=== PATIENT | female | born 1975 | race American Indian/Alaskan Native ===

== ENCOUNTER 2019-06-28 09:04 | Inpatient (IN) | payer MEDICAID ==
[2019-06-28] MEDS ORDERED: LACTATED RINGERS 1,000 ML ONE (09:28)
[2019-06-28] MEDS ORDERED: FAMOTIDINE 20 MG/2 ML INJ IV ONE (15:27)
[2019-06-28] MEDS ORDERED: BICITRA ORAL LIQD 30ML PO ONE (15:27)
[2019-06-28] MEDS ORDERED: GENTAMICIN 80 MG in SODIUM CHLORIDE 0.9% 100 ML IV ONE (15:27)
[2019-06-28] MEDS ORDERED: METOCLOPRAMIDE 10 MG/2 ML INJ IV ONE (15:27)
[2019-06-28] MEDS ORDERED: GENTAMICIN/NS 80 MG/100 ML 100 ML IV ONE (15:40)
[2019-06-28 15:42] LABS: Basophils # (Auto) 0.1 K/mm3 (0.0-0.1); Basophils % (Auto) 1.3 % (0.0-1.8); Eosinophils # (Auto) 0.1 K/mm3 (0.0-0.4); Eosinophils % (Auto) 1.9 % (0.0-4.3); Hemoglobin 11.1 gm/dl (10.1-14.3); Lymphocytes # (Auto) 1.6 K/mm3 (1.2-5.4); Lymphocytes % (Auto) 23.6 % (13.4-35.0); Mean Corpuscular HGB Conc 34 % (30-34); Mean Corpuscular Volume 89 fl (79-97); Monocytes # (Auto) 0.5 K/mm3 (0.0-0.8); Monocytes % (Auto) 7.4 % (0.0-7.3); Platelet Count 280 K/mm3 (140-440); Red Blood Count 3.72 M/mm3 (3.65-5.03); Red Cell Distribution Width 14.4 % (13.2-15.2)
[2019-06-28] MEDS ORDERED: GENTAMICIN/NS 80 MG/100 ML 100 ML IV NR (16:00)
[2019-06-28] MEDS ORDERED: LACTATED RINGERS 1,000 ML IV SCH (16:00)
[2019-06-28] MEDS ORDERED: OXYTOCIN 20 UNIT/1000ML DRIP 20 UNITS/1,000 ML BAG IV SCH ×2 (16:00→19:00)
[2019-06-28] MEDS ORDERED: WATER FOR IRRIG STERILE 1,500 ML BOTTLE IR ONE (16:24)
[2019-06-28] MEDS ORDERED: SODIUM CHLORIDE 0.9% IRR 1,500 ML BOTTLE IR ONE (16:24)
[2019-06-28] MEDS ORDERED: PHENYLEPHRINE 10 MG/1 ML INJ SDV ONE (16:50)
[2019-06-28] MEDS ORDERED: DEXMEDETOMIDINE 200 MCG/2 ML VIAL IV ONE (16:50)
[2019-06-28] MEDS ORDERED: MIDAZOLAM 2 MG/2 ML INJ ONE ×2 (17:46)
[2019-06-28] MEDS ORDERED: LANOLIN/ZINC/DIMETHICONE (LANSINOH) 7 GM TP PRN (18:12)
[2019-06-28] MEDS ORDERED: NALOXONE 0.4 MG/1 ML INJ IV PRN (18:12)
[2019-06-28] MEDS ORDERED: WITCH HAZEL/ GLYCERIN PAD TP PRN (18:12)
[2019-06-28] MEDS ORDERED: SENNOSIDES 8.6 MG TAB PO PRN (18:16)
[2019-06-28] MEDS ORDERED: HYDROCORTISONE 25 MG RECTAL SUPP PR PRN (18:16)
[2019-06-28] MEDS ORDERED: ONDANSETRON 4 MG/2 ML INJ IV PRN ×2 (18:16→18:26)
[2019-06-28] MEDS ORDERED: MAGNESIUM HYDROXIDE (MOM) ORAL LIQD UDC PO PRN (18:16)
[2019-06-28] MEDS ORDERED: SIMETHICONE 80 MG CHEW TAB PO PRN (18:16)
--- NOTE | 2019-06-28 18:25 | Anesthesia Consultation ---
Anesthesia Consult and Med Hx Date of service: 06/28/19 - Airway Anesthetic Teeth Evaluation: Good, Poor ROM Head & Neck: Adequate Mental/Hyoid Distance: Adequate Mallampati Class: Class II Intubation Access Assessment: Probably Good - Pulmonary Exam CTA: Yes - Cardiac Exam Cardiac Exam: RRR - Pre-Operative Health Status ASA Pre-Surgery Classification: ASA2 Proposed Anesthetic Plan: Epidural - Pre-Anesthesia Comment Pre-Anesthesia Comments: PSH: DENIES - Pulmonary Hx Smoking: Yes Hx Asthma: No Hx Respiratory Symptoms: No SOB: No COPD: No Home Oxygen Therapy: No Hx Pneumonia: No Hx Sleep Apnea: No - Cardiovascular System Hx Hypertension: No Hx Coronary Artery Disease: No Hx Heart Attack/AMI: No Hx Angina: No Hx Percutaneous Transluminal Coronary Angioplasty (PTCA): No Hx Cardia Arrhythmia: No Hx Pacemaker: No Hx Internal Defibrillator: No Hx Valvular Heart Disease: No Hx Heart Murmur: No Hx Peripheral Vascular Disease: No - Central Nervous System Hx Neuromuscular Disorder: No Hx Seizures: No CVA: No Hx Back Pain: Yes Hx Psychiatric Problems: No - Gastrointestinal Hx Ulcer: No Hx Gastroesophageal Reflux Disease: Yes - Endocrine Hx Renal Disease: No Hx End Stage Renal Disease: No Hx Cirrhosis: No Hx Liver Disease: No Hx Insulin Dependent Diabetes: No Hx Non-Insulin Dependent Diabetes: No Hx Thyroid Disease: No Hx Hypothyroidism: No Hx Hyperthyroidism: No - Hematic Hx Anemia: Yes Hx Sickle Cell Disease: No - Other Systems Hx Alcohol Use: Yes (socially) Hx Substance Use: No Hx Cancer: No Hx Obesity: No
[2019-06-28] MEDS ORDERED: HYDROmorphone 1 MG/1 ML INJ IV PRN ×2 (18:26)
--- NOTE | 2019-06-28 18:26 | Post Anesthesia Evaluation ---
- Post Anesthesia Evaluation Patient Participated: Yes Airway Patent: Yes Stable Respiratory Function: Yes Nausea/Vomiting: No Temp > 96.8F: Yes Pain Manageable: Yes Adequeate Hydration: Yes Anesthesia Complications: No Block Receding Appropriately: Yes Patient on Ventilator: No
--- NOTE | 2019-06-28 18:26 | Anesthesia Day of Surgery ---
Anesthesia Day of Surgery - Day of Surgery Patient Examined: Yes Patient H&P Reviewed: Yes Patient is NPO: Yes Beta Blockers: No Cardiac Clearance: No Pulmonary Clearance: No Manan's Test: N/A
--- NOTE | 2019-06-28 18:32 | Procedure Note ---
OB Delivery Note - Section Preop diagnosis: repeat , desires sterilization Postop diagnosis: same section procedure: repeat low transverse, bilateral tubal ligation Disposition: PACU Complications: none Narrative: This patient is at 39 weeks and 4 days today with a history of 3 prior C- sections who is here today for her repeat low transverse as well as fo r tubal ligation for sterilization. Surgeon Dr. Vivar Assist Dr. Prateek Doherty Anesthesia spinal Estimated blood loss 800 mL Findings normal tubes and ovaries were noted except for some filmy adhesions around the tubes particularly on the right side. The uterus was also grossly within normal limits except for some mild filmy adhesions on the anterior side. Patient did have some significant subcutaneous tissue and madhuri-fascial scarring. Viable Male, APGARs 8/9 Procedure patient was taken to the operating room and prepped and draped in the usual fashion. A Pfannenstiel skin incision was made over her prior incision. Dissection was carefully carried down to the underlying fascia which was incised and the incision was extended bilaterally. Rectus fascia dissected off the rectus muscle both superiorly and inferiorly. Peritoneum was identified and entered. Peritoneal incision then extended superiorly and inferiorly with good visualization of the bladder. The above-noted adhesions were lysed then the uterine incision was made. Uterine incision then extended bilaterally. Clear fluid was noted. Baby was vertex. Baby delivered in the usual fashion except needed to Kiwi vacuum to assist with the delivery due to the tightness of her scar tissue. Kiwi was pumped up to green section on each application. 2 pop offs were noted but the baby successfully intubated delivered with her application. Kiwi was removed. Remainder the baby was delivered. Delayed cord clamping and cutting was done. Baby handed off to awaiting team. Placenta was then delivered spontaneously and the uterus tubes and ovaries were exteriorized. The uterus was cleared of all clots and debris. The uterine incision closed with 0 Vicryl running locked fashion followed by a second imbr icating layer of 0 Vicryl. A couple of other [id number] stitches were required and then good hemostasis noted. Attention was turned to the fallopian tubes which were suture ligated using 0 chromic 2 on each side. Good hemostasis noted afterwards. The above-noted adhesions were lysed prior to performing the tubal ligation. The segments of each tube were sent to pathology. Uterus tubes and ovaries then returned to the abdominal cavity. Gutters were cleared of all clots and debris and pelvis was well irrigated. Good hemostasis was noted including at the site of the tubal ligation. Interceed placed over the uterine incision and over the lower uterine segment in the midline. Attention was done to the rectus fascia was reapproximated using 0 Vicryl in a running fashion. The subcutaneous tissue was very thin and therefore was not closed. The skin was closed with 4-0 Vicryl in a subcuticular fashion followed by Dermabond. Patient tolerated procedure well. All instrument and lap counts were correct. Patient taken to the recovery room in stable condition.
[2019-06-28] MEDS ORDERED: D5W/LACTATED RINGERS 1,000 ML IV SCH (19:00)
[2019-06-28] MEDS: KETOROLAC 30 MG/1 ML INJ IV PRN (21:10)
[2019-06-29] MEDS: KETOROLAC 30 MG/1 ML INJ IV PRN ×2 (02:00→09:08)
[2019-06-29 06:58] LABS: Hematocrit 31.6 % (30.3-42.9); Hemoglobin 10.7 gm/dl (10.1-14.3)
--- NOTE | 2019-06-29 07:22 | Progress Note ---
Assessment and Plan - Patient Problems (1) delivery delivered Current Visit: Yes Status: Acute Plan to address problem: stable POD 1. Cont pp care. Subjective - Subjective Date of service: 06/29/19 Principal diagnosis: POD 1 Patient reports: no new complaints (PT is amb, tolerating po, positive flatus. No F/V/N/V/CP/SOB.) Objective - Vital Signs Vital Signs: Vital Signs - 12hr 06/28/19 06/28/19 06/28/19 19:20 19:30 19:35 Temperature 97.0 F L 96.8 F L Pulse Rate 63 Respiratory 17 Rate Respiratory Rate [Lower Abdomen] Blood Pressure 139/92 Blood Pressure [Right] O2 Sat by Pulse 100 Oximetry 06/28/19 06/28/19 06/28/19 19:40 19:58 20:00 Temperature 97.1 F L 97.5 F L 98.6 F Pulse Rate 77 Respiratory 16 Rate Respiratory Rate [Lower Abdomen] Blood Pressure Blood Pressure 143/90 [Right] O2 Sat by Pulse Oximetry 06/28/19 06/29/19 06/29/19 21:10 00:00 02:00 Temperature 98.6 F Pulse Rate 69 Respiratory 18 18 18 Rate Respiratory 18 Rate [Lower Abdomen] Blood Pressure Blood Pressure 121/68 [Right] O2 Sat by Pulse Oximetry 06/29/19 04:40 Temperature 98.6 F Pulse Rate 71 Respiratory 1 L Rate Respiratory Rate [Lower Abdomen] Blood Pressure Blood Pressure 114/78 [Right] O2 Sat by Pulse Oximetry - Exam Abdomen: Present: normal appearance, soft (appropriately tender. Dressing C/D/I) - Labs Labs: Abnormal Labs 06/28/19 Unknown [place] % (Auto) 7.4 H Laboratory Results - last 24 hr 06/28/19 06/28/19 06/29/19 Unknown Unknown 05:53 WBC 6.9 RBC 3.72 Hgb 11.1 10.7 Hct 33.0 31.6 MCV 89 MCH 30 MCHC 34 RDW 14.4 Plt Count 280 Lymph % (Auto) 23.6 [place] % (Auto) 7.4 H Eos % (Auto) 1.9 Baso % (Auto) 1.3 Lymph # 1.6 [place] # 0.5 Eos # 0.1 Baso # 0.1 Seg Neutrophils % 65.8 Seg Neutrophils # 4.5 Blood Type A POSITIVE Antibody Screen Negative
[2019-06-29] MEDS: guaiFENesin 100 MG/5 ML ORAL LIQD PO PRN ×2 (13:48→22:32)
[2019-06-29] MEDS: HYDROcodone/ACETAMINOPHEN 5-325 MG TAB PO PRN ×2 (13:53→22:41)
[2019-06-29] MEDS: IBUPROFEN 800 MG TAB PO PRN (18:08)
[2019-06-30] MEDS: guaiFENesin 100 MG/5 ML ORAL LIQD PO PRN (05:01)
[2019-06-30] MEDS: HYDROcodone/ACETAMINOPHEN 5-325 MG TAB PO PRN ×3 (05:02→20:59)
[2019-06-30] MEDS ORDERED: TETANUS,DIPH,PERTUSS(ACELL) VACCINE 0.5 ML SYRINGE IM ONE (06:00)
[2019-06-30] MEDS: IBUPROFEN 800 MG TAB PO PRN ×2 (08:51→17:21)
--- NOTE | 2019-06-30 11:40 | Progress Note ---
Assessment and Plan A: /postop day 2 S/P repeat LTCS. Cough and congestion with rhonchi on auscultation of lungs. Anemia secondary to and blood loss. P: CBC, flu swab, chest x-ray. Continue iron supplementation and ambulation. Subjective - Subjective Date of service: 06/30/19 Principal diagnosis: POD 2 S/P repeat LTCS Interval history: Post op day 2 S/P repeat LTCS. Patient is voiding without difficulty, passing gas, tolerating a regular diet, and ambulating well. She is using incentive spirometer. She reports small amount of lochia. She reports a cough which she states she has had for about a week. Denies fever, chills, body aches, or malaise. Reports nasal congestion and pale yellow mucous. Reports she feels congeted in her chest starting this AM. Patient denies dizziness, headache, chest pain, shortness of breath, or leg pain. She denies heavy vaginal bleeding. She is bottlefeeding and . Patient reports: appetite normal, voiding normally, pain well controlled, fl atus, ambulating normally, no dizzy ambulation, no nauseated [place]: doing well Objective - Vital Signs Latest vital signs: Vital Signs Temp Pulse Resp BP BP Pulse Ox 06/30/19 08:51 20 06/30/19 08:15 97.9 F 72 20 130/82 06/30/19 00:00 98.7 F 77 18 101/78 06/29/19 23:41 18 06/29/19 22:41 18 06/29/19 15:55 98.7 F 78 20 147/84 100 06/29/19 11:58 98.5 F 83 20 124/83 99 Intake and Output 06/29/19 06/30/19 06/30/19 23:59 07:59 15:59 Intake Total 240 240 120 Balance 240 240 120 Intake: Oral 240 240 120 Other: Total, Intake Amount 240 240 120 # Voids Void 1 1 1 - Exam Cardiovascular: Present: Regular rate, Normal S1, Normal S2, No murmurs Lungs: Present: Other (rhonchi heard in all lung [place]) Abdomen: Present: normal appearance, soft, normal bowel sounds. Absent: distention, tenderness, guarding, rigidity Uterus: Present: normal, firm, fundal height below umbilicus. Absent: bogginess, tenderness Extremities: Present: normal. Absent: tenderness, edema Incision: Present: normal, dry, intact
[2019-06-30] MEDS: FERROUS SULFATE 325 MG TAB PO SCH (12:15)
--- NOTE | 2019-06-30 12:16 | XRay Report ---
CHEST 2 VIEWS INDICATION: cough, congestion. COMPARISON: None FINDINGS: Support devices: None. Heart: Within normal limits. Lungs/pleura: No acute air space or interstitial disease. No pneumothorax. Additional findings: None. IMPRESSION: 1. No acute findings. Signer Name: Jj Vail MD Signed: 06/30/2019 12:11 PM Workstation Name: [id number]
[2019-06-30 15:38] LABS: Hematocrit 30.2 % (30.3-42.9); Hemoglobin 10.1 gm/dl (10.1-14.3); Mean Corpuscular HGB Conc 34 % (30-34); Mean Corpuscular Volume 89 fl (79-97); Platelet Count 298 K/mm3 (140-440); Red Blood Count 3.41 M/mm3 (3.65-5.03); Red Cell Distribution Width 14.4 % (13.2-15.2)
[2019-06-30] MEDS ORDERED: guaiFENesin DM 200/20 MG ORAL LIQD 10 ML PO PRN (20:15)
[2019-07-01] MEDS: IBUPROFEN 800 MG TAB PO PRN (05:08)
[2019-07-01] MEDS: HYDROcodone/ACETAMINOPHEN 5-325 MG TAB PO PRN (09:33)
[2019-07-01] MEDS: FERROUS SULFATE 325 MG TAB PO SCH (09:33)
--- NOTE | 2019-07-01 09:44 | Discharge Summary ---
Providers - Providers Date of Admission: 06/28/19 09:04 Date of discharge: 07/01/19 Attending physician: LESLIE VIVAR Primary care physician: LESLIE VIVAR Hospitalization Reason for admission: IUP at term Delivery: Procedure: bilateral tubal ligation, repeat low transverse Episiotomy: none Laceration: none Incision: dry, intact (no signs of infection noted) Other procedures: tubal ligation complications: none Discharge diagnosis: other (S/P repeat C/S with BTL; Anemia) Webb baby: male Condition at discharge: Good Disposition: DC-01 TO HOME OR SELFCARE - Discharge Diagnoses (1) S/P repeat low transverse Status: Acute (2) tubal ligation planned Status: Acute (3) Anemia Status: Acute Qualifiers: Anemia type: other cause Other causes of anemia: acute posthemorrhagic Qualified Code(s): D62 - Acute posthemorrhagic anemia Plan - Discharge Medications Prescriptions: Ferrous Sulfate [Feosol 325 MG tab] 325 mg PO QDAY 30 Days #30 tablet - Provider Discharge Summary Activity: routine, no sex for 6 weeks, no heavy lifting 4 weeks, no strenuous exercise Diet: other (Iron rich diet) Instructions: routine Additional instructions: [] Smoking cessation referral if applicable(refer to patient education folder for contact #) [] Refer to [facility]'s [facility] Booklet Call your doctor immediately for: * Fever > 100.5 * Heavy vaginal bleeding ( >1 pad per hour) * Severe persistent headache * Shortness of breath * Reddened, hot, painful area to leg or breast * Drainage or odor from incision. * Keep incision clean and dry at all times and follow doctor's instructions regarding bathing/showering * Continue daily oral iron supplementation as directed with OJ * F/U in 7 days for B/P and incision check - Follow up plan Follow up: LESLIE VIVAR MD [Primary Care Provider] - 7 Days
[2019-07-01 12:28] VITALS: BP 137/85
== END 2019-07-01 14:00 | disposition home or self-care (01) | DRG 765 ==
LOC: APU 09:04 → OB 21:14
PROVIDERS: ADMIT Obstetrics & Gynecology; ATTEND Obstetrics & Gynecology
PROC: 10D00Z1 Extraction of Products of Conception, Low, Open Approach (ICD-10-PCS; principal; 2019-06-28)
PROC: 0UB70ZZ Excision of Bilateral Fallopian Tubes, Open Approach (ICD-10-PCS; 2019-06-28)
DX: O34.211 Maternal care for low transverse scar from previous cesarean delivery (principal); D62 Acute posthemorrhagic anemia; O99.02 Anemia complicating childbirth; O99.334 Smoking (tobacco) complicating childbirth; F17.200 Nicotine dependence, unspecified, uncomplicated; O99.62 Diseases of the digestive system complicating childbirth; K21.9 Gastro-esophageal reflux disease without esophagitis; O99.314 Alcohol use complicating childbirth; Z37.0 Single live birth; Z3A.39 39 weeks gestation of pregnancy; Z30.2 Encounter for sterilization
CPT/HCPCS: 36415; 71046; 85014; 85018; 85025; 85027; 86850; 86900; 86901; 87400; 88302; 90471; 90715; G0378; A6250; C1765; J1580; J1885; J2250; J2370; J2590; J2765; J3490; J7120